=== PATIENT | male | born 1950 | race Caucasian/White ===

== ENCOUNTER → 2021-04-14 10:40 | Outpatient (CLI) | payer OTHER, SELFPAY ==
[2021-04-14 11:08] LABS: COVID19 -Nasal RAPID Negative (Negative)
== END ==
PROVIDERS: PCP Family Medicine; Visit Provider Nurse Practitioner
DX: Z20.822 Contact with and (suspected) exposure to COVID-19 (principal)
CPT/HCPCS: 87635

== ENCOUNTER 2021-04-17 06:12 | Day surgery (SDC) | payer OTHER, SELFPAY ==
[2021-03-30 09:42] VITALS: BMI 23.1
[2021-04-17] VITALS (10 sets, daily range): BP systolic 117–148; BP diastolic 64–97; PULSE 59–70; RESP 8–100; TEMP 36.1–37.4; O2SAT 12–100; BMI 23.1
--- NOTE | 2021-04-17 06:22 | DI.RAD.S_ITS ---
PROCEDURE: XR KNEE LT 1TO2V INDICATIONS: postop prosthesis placement TECHNIQUE: Two view(s) of the knee acquired. COMPARISON: [facility], CR, XR KNEE 4+ VIEWS LEFT, 01/17/2021, 14:32. FINDINGS: Bones: Patient is status post knee joint arthroplasty. Hardware components are in expected positions. Visualized bony structures are intact. Soft tissues: Overlying postoperative changes are noted including small joint effusion and intra-articular as well as soft tissue gas. Decreased density and quantity of intra-articular calcifications with mild residual posterior medial compartment calcification. IMPRESSION: 1. Post left knee arthroplasty with osseous and soft tissue changes as expected. Dictated by: Kirstin Good M.D. on 04/17/2021 at 12:33 Approved by: Kirstin Good M.D. on 04/17/2021 at 12:38
[2021-04-17] MEDS: CELECOXIB 200 MG CAPSULE PO (06:59)
[2021-04-17] MEDS: PREGABALIN 75 MG CAPSULE PO (06:59)
[2021-04-17] MEDS: ACETAMINOPHEN 325 MG TABLET 975 MG PO (07:04)
[2021-04-17] MEDS: LACTATED RINGERS 1,000 ML 42 ML IV (07:25)
--- NOTE | 2021-04-17 07:40 | PM.PREOP ---
Pre-operative Note COVID-19 COVID-19 status: Negative Result date/Date tested (Pos, Neg/Pending): 04/14/21 Interval Note History & Physical reviewed/Exam performed by Physician: Yes Changes to H&P: No
[2021-04-17] MEDS: CEFAZOLIN 1 GM VIAL 2 GM IV (08:02)
[2021-04-17] MEDS: TRANEXAMIC ACID 1,000 MG VIAL 1000 MG INJ ×2 (08:07→09:07)
--- NOTE | 2021-04-17 08:15 | SUR.OPER ---
Supine on padded OR bed. Pillow under head, arms secured on padded arm boards <90 degree abduction. Safety belt across torso. Non-operative leg secured with tape over blanket over lower leg. Operative leg secured in DeMayo positioner.
[2021-04-17] MEDS: BUPIVACAINE 0.25% (PF) VIAL 60 ML INJ (08:22)
[2021-04-17] MEDS: EPINEPHrine 1 MG/ML 0.3 MG INJ (08:23)
[2021-04-17] MEDS: BUPIVACAINE LIPOSOME 266 MG/20 ML VIAL INJ (08:24)
[2021-04-17] MEDS: MORPHINE 4 MG/ML INJ INJ (08:25)
--- NOTE | 2021-04-17 09:40 | P.OP_ITS ---
Operative Date/Time/Diagnoses Date of procedure: 04/17/21 Time of procedure: 09:40 Pre-op diagnosis: Left knee osteoarthritis Post-op diagnosis: same Procedure & Clinicians Procedure: Left total knee replacement Same procedure as scheduled: Yes Indications: The patient has had progressively worsening left knee pain with radiographic changes consistent with arthritis. Non-operative management has failed and the patient has requested total knee replacement. The risks, benefits and alternatives to surgery were discussed with the patient prior to proceeding. Risks discussed included, but were not limited to, failure to relieve pain, stiffness, infection, nerve damage, deep venous thrombosis, pulmonary embolism, stroke, coma, heart attack, permanent paralysis and , as well as the potential need for eventual revision of the prosthetic. Surgeon: Paras Sibley Head Usher: Nay Enciso Anesthesia Type: Spinal and Local Operative Notes Findings: Is severe medial and moderate patellofemoral osteoarthritis with relative preservation of the lateral compartment. Closure Type: primary Specimen(s): none sent Prosthetic devices, grafts, tissues, transplants, or devices: Implants used in this procedure were manufactured by the [employer] and [employer] and included the BCS II Journey total knee replacement with a size 8 Oxinium femoral component, a size 8 left non porous tibial base plate, a 9 mm cross-linked polyethylene tibial insert and a 41 mm oval Smiley II patella. Applied: implant(s) Estimated Blood Loss (mL): 50 Blood products transfused: none Tourniquet time (min): 55 Procedure in detail: The patient was seen in the pre-operative area, where the left knee was identified as the operative site and this was marked with my initials. The patient received pre-operative antibiotics, and was taken to the operating room and placed on the operative table in the supine position. After satisfactory anesthesia, a full stack software engineer out was performed. The left leg was encircled with a tourniquet about the proximal thigh, and the leg was prepared from the toes to the tourniquet with ChloroPrep in the usual fashion and draped through sterile drapes. The leg was elevated and exsanguinated with Eschmark bandage and the tourniquet inflated to 250 mmHg pressure. The knee was approached through an approximately 18 cm incision centered over the patella and carried into the knee through a medial parapatellar arthrotomy. The anterior osteophytes and soft tissues were removed. The rotational landmarks of Sameer's line and the transepicondylar axis were marked on the femur with electrocautery, and intramedullary guide holes for the femur and tibia were created. The distal femoral cut was made in 6 degrees of valgus using the intramedullary guide at the +2 cut setting due to a significant flexion contracture. The proximal tibial cut was then made using the intramedullary guide, taking 9 mm of bone off the less involved side. The extension gap was checked and the rotation of the femoral component confirmed with the gap balancing blocks. The anterior, posterior and chamfer cuts were then made. The posterior osteophytes and soft tissues were then removed. The posterior capsule was injected with part of a mixture of 60 ml 0.25% Marcaine mixed with 20 ml Exparel and 4 mg of morphine for post-operative pain control. The remainder of this mixture was injected into the capsule and subcutaneous tissues during cement curing. The tibia was prepared with the rotation set by an extra medullary guide. Trial tibial and femoral components were then placed and the intercondylar notch cut through the femoral trial. Range of motion was 0-145 degrees, with good stability throughout the range. The patella was then cut to accommodate the p atellar prosthetic. There was no need for a lateral release. The trials were then removed, and the femoral hole plugged with a bone plug. The bone was prepared with pulsatile lavage, and dried with a sponge. Cement was applied and the final prosthetics placed. Excess cement was removed during and after cement curing. After confirming there was no extruded cement posteriorly, the final tibial insert was placed. The knee was copiously irrigated and the tourniquet deflated. Hemostasis was obtained. The capsule was closed with interrupted # 2 polyester sutures. The subcutaneous layer was closed with 3-0 Vicryl, and the skin with a running 3-0 V-Lock suture and Dermabond. An Aquacel Ag dressing was applied and the patient was taken to recovery having tolerated the procedure well. Complications: none Post-operative Condition: stable Disposition: PACU Plan for aftercare: The patient will be maintained on a standard total knee replacement protocol with weight bearing as tolerated. The patient will receive aspirin and sequential compression devices for DVT prophylaxis. The patient will be discharged home when safe for the home environment.
--- NOTE | 2021-04-17 10:04 | SUR.PHASEI ---
received to PACU after spinal/general anesthesia. Airway patent, self maintained. Report received from MYRNA Cunningham and Dr Ramirez.
--- NOTE | 2021-04-17 10:23 | SUR.PHASEI ---
Transferred to room 213 with belonging bags x2 and backpack. Received in room by MYRNA Betancourt.
[2021-04-17] MEDS: LACTATED RINGERS 1,000 ML 100 ML IV (10:40)
--- NOTE | 2021-04-17 12:29 | PT.IIE ---
Current Diagnoses Unilateral primary osteoarthritis, left knee (04/17/21) Surgery Performed Operation Date: 04/17/21 07:45 Actual Procedures p Total Knee Arthroplasty(Left) - Paras Sibley MD Medical History (Last Updated 03/30/21 @ 10:16 by Orly Newman RN) Depression History of varicocele HLD (hyperlipidemia) Inner ear inflammation Skin cancer Tinnitus Physical Therapy Inpatient Evaluation/Re-Eval M1 PT/OT-IP Prior Functional Status Start: 04/17/21 12:19 Freq: NEEDED Status: Active Protocol: Document 04/17/21 12:05 OF (Rec: 04/17/21 12:29 OF [id number]) Medical Review Prior Functional Status Medical History Reviewed Yes Diet/Fluid Consistency Regular Prior Functional Level (Other details) Pt was I within community, works mostly from home. Enjoys hiking, walking, and water skiing Social History Household Members spouse,children Living Arrangements House Number of Floors (Floors) Two Floors Number of Stairs To Enter/Railing? 2 with rail Home Environment Standard Height Toilet,Walk in Shower,Built-In Shower Seat Home Equipment Front Wheel Walker Employment Status Plant Engineering Supervisor Employed M2 PT-IP Current Condition Start: 04/17/21 12:19 Freq: NEEDED Status: Active Protocol: Document 04/17/21 12:05 OF (Rec: 04/17/21 12:29 OF [id number]) Physical Therapy Current Condition Current Condition Evaluation Date 04/17/21 Treatment Diagnosis Difficulty walking, L TKA Weight Bearing Status Weight Bearing Status Weight Bear as Tolerated M3 PT-IP Subjective Start: 04/17/21 12:19 Freq: NEEDED Status: Active Protocol: Document 04/17/21 12:05 OF (Rec: 04/17/21 12:29 OF [id number]) Subjective Physical Therapy Visit Type Type Initial Evaluation Visit Start Time 11:30 Visit Stop Time 12:05 Total Visit Minutes 35 Number of COAT PADDER Visits 0 Physical Therapy Visit Comments Patient Comments pt and report pt was active prior to surgery. They have FWW available, outpatient therapy scheduled 04/20/21 Patient Goals get back to normal Therapy Pain Assessment Pain When Pain Assessed At Rest Pain Present Pain Present Denied Pain M4 PT-IP Mobility and Gait Start: 04/17/21 12:19 Freq: NEEDED Status: Active Protocol: Document 04/17/21 12:05 OF (Rec: 04/17/21 12:29 OF [id number]) PT-Bed Mobility Assessment Rolling Type of Rolling Roll to Right,Roll to Left Level of Assist Independent Supine to Sit Supine to Sit Independent Sit to Supine Sit to Supine Independent Scooting Scooting to Edge of Bed Independent Scooting Up and Down in Bed Independent PT-Transfer Assessment Sit to and From Stand Sit to and from Stand Minimal Assistance Equipment Transfer Assistive Device Front Wheeled Walker Transfers Transfer Destination Chair Transfer Technique Stand Step Pivot Transfer Ability Level of Assist Independent,Minimal Assistance Gait Assessment Gait Gait Assistance Required: Independent,Minimum Assistance Distance (Feet) 50 Able to Maintain Weight Bearing Status Yes During Gait Assistive Devices Assistive Device Front Wheeled Walker Gait Deviations General Gait Pattern Antalgic,Decreased Stride Length,Decreased Feet Clearance Factors Limiting Gait Function Factors Limiting Gait Function Decreased Activity Tolerance, Decreased Strength,Limited Range of Motion,Poor Balance Comments Gait Comments Stairs deferred due to limited quad control post op. PT-Balance Assessment Sitting Balance and Reactions Static Sitting Balance Ability Normal Dynamic Sitting Balance Ability Normal Standing Balance and Reactions Static Standing Balance Ability Good Dynamic Standing Balance Ability Good M5 PT-IP Objective Assessments Start: 04/17/21 12:19 Freq: NEEDED Status: Active Protocol: Document 04/17/21 12:05 OF (Rec: 04/17/21 12:29 OF [id number]) Orientation Orientation/Cognition Level of Alertness Alert Gross Range of Motion Upper Extremity ROM Assessment Within Functional Limits Lower Extremity ROM Assessment Left Impaired Impairments L LE 170-90 AROM Strength Upper Extremity Strength Assessment Within Functional Limits Lower Extremity Strength Assessment Left Impaired Hip 4/5 Knee 2+/5 Ankle 4/5 Coordination Assessment Gross Coordination Gross Coordination WNL Sensation Assessment Sensation Gross Sensation Left LE Impaired Light Touch Impaired Proprioception (Position) Intact Sensation Description Numbness,Itching Muscle Tone Muscle Tone WNL Yes M6 PT-IP Treatment Start: 04/17/21 12:19 Freq: NEEDED Status: Active Protocol: Document 04/17/21 12:05 OF (Rec: 04/17/21 12:29 OF [id number]) Physical Therapy Treatment Exercises Exercises Ankle Pumps,Gluteal Sets,Quad Sets Knee ROM Measurement 170-90 Education Education Provided Precautions,Weight Bearing Status,Post-Op Packet,Safety M7 PT-IP Assessment and Plan Start: 04/17/21 12:19 Freq: NEEDED Status: Active Protocol: Document 04/17/21 12:05 OF (Rec: 04/17/21 12:29 OF [id number]) PT Summary Assessment and Plan Potential Rehabilitation Potential Excellent Status of Condition at Evaluation Stable Summary Impairments Pain,ROM,Strength,Balance,Gait ,Activity Tolerance Progress Towards Goals Progressing Toward Goals Assessment Summary Cole is a pleasant 70 yo male s/p L TKA. He has had lumbar surgery in 2019 with resulting numbness over R plantar surface of foot. He denies other recent operations. He was I within the community, works primarily from home. He did not use a device for mobility. He has difficulty with ROM, weakness, and difficulty walking after surgery. He will require further skilled intervention for stair training to safely return home. He and issued written instructions for HEP and proper positioning while in room. Goals Bed Mobility Goal Independent Transfer Goal Independent Gait Goal Independent Gait Distance 150ft Other Goals Ascend/descend 2 steps with rail SBA to enter home with assist from . Days to Meet Goals 2 Frequency of Treatment Frequency Of Treatment Twice a Day Treatment Plan Physical Therapy Treatment Plan Bed Mobility Training,Transfer Training,Gait Training, Therapeutic Exercise,Balance Retraining,Post Op Education, Discharge Planning, Neuromuscular Re-ed Recommendations To Nursing Amount of Assist Needed 1 Person Assist Discharge Recommendations PT Discharge Recommendations Home Other Discharge Recommendations pt has outpatient therapy scheduled to start 04/20 Equipment Needed for Home Before FWW, which pt states he has Discharge Transportation Needs at Discharge Private Vehicle
[2021-04-17] MEDS: IBUPROFEN 400 MG TABLET PO ×3 (12:54→20:46)
[2021-04-17] MEDS: ACETAMINOPHEN 325 MG TABLET 650 MG PO ×2 (14:48→20:46)
--- NOTE | 2021-04-17 15:53 | PM.DS.1 ---
History of Present Illness History of Present Illness Date Patient Seen: 04/17/21 Time Patient Seen: 15:53 Chief complaint: left knee pain s/p TKA Narrative: Please see prior HPI Discharge Providers Provider Discharge Date: 04/17/21 Primary care physician: Maximiliano Galdamez Consults: 04/17/21 06:22 Consult to Anesthesiology Routine Comment: Consulting Provider: Anesthesiologist Reason for consultation: Regional block for post operative pain control 04/17/21 10:26 Consult to Discharge Planning Routine Comment: Consult to Physical Therapy Evaluate & Treat Comment: Physician Instructions: postop TKA protocol Discharge provider: Nay Enciso PA-C Summary Hospital Course Discharge Diagnosis: Left knee osteoarthritis Hospital Course: Procedure: Left total knee replacement Same procedure as scheduled: Yes Indications: The patient has had progressively worsening left knee pain with radiographic changes consistent with arthritis. Non-operative management has failed and the patient has requested total knee replacement. The risks, benefits and alternatives to surgery were discussed with the patient prior to proceeding. Risks discussed included, but were not limited to, failure to relieve pain, stiffness, infection, nerve damage, deep venous thrombosis, pulmonary embolism, stroke, coma, heart attack, permanent paralysis and , as well as the potential need for eventual revision of the prosthetic. Surgeon: Paars Sibley Video Systems Engineer: Nay Enciso Anesthesia Type: Spinal and Local Operative Notes Findings: Is severe medial and moderate patellofemoral osteoarthritis with relative preservation of the lateral compartment. Closure Type: primary Specimen(s): none sent Prosthetic devices, grafts, tissues, transplants, or devices: Implants used in this procedure were manufactured by the [employer] and included the BCS II Journey total knee replacement with a size 8 Oxinium femoral component, a size 8 left non porous tibial base plate, a 9 mm cross-linked polyethylene tibial insert and a 41 mm oval Smiley II patella. Applied: implant(s) Estimated Blood Loss (mL): 50 Blood products transfused: none Tourniquet time (min): 55 Status at Discharge Cognitive/behavioral status at discharge: oriented Functional status at discharge: uses cane/walker Overall status at discharge: patient is progressing back to baseline Exam Vital Signs (past 8 hours): - 04/17/21 09:49 04/17/21 09:54 04/17/21 09:59 Temperature 99.4 F Pulse Rate 70 70 68 Respiratory Rate 10 L 12 100 H Blood Pressure 123/73 117/68 117/71 Pulse Oximetry 100 99 12 L 04/17/21 10:04 04/17/21 10:12 04/17/21 10:26 Temperature 99.0 F 96.9 F L Pulse Rate 64 64 59 L Respiratory Rate 10 L 8 L 14 Blood Pressure 125/76 133/79 129/64 Pulse Oximetry 100 100 100 04/17/21 12:58 Temperature Pulse Rate 61 Respiratory Rate 16 Blood Pressure 119/71 Pulse Oximetry 100 Oxygen Delivery Method Room Air Oxygen Flow Rate 0 Narrative Exam Narrative: Pleasant 70-year-old male, ran resting comfortably in his chair, no acute distress. Bilateral lower extremity motor functions are intact. Bilateral lower extremities sensation is grossly intact to light touch. Bilateral calves are soft, nontender to palpation. Dressing is clean, dry, intact. [facility] Medical History Depression History of varicocele HLD (hyperlipidemia) Inner ear inflammation Skin cancer Tinnitus Surgical History History of back surgery History of colonoscopy with polypectomy History of vasectomy Hx of knee surgery Social History household members: spouse and children Smoking Status: Never smoker alcohol intake: current Discharge Assessment & Plan Assessment and Plan Assessment: Progressing as expected status post left total knee arthroplasty Plan of Treatment: -DC home today -aspirin 81 mg b.i.d. x6 weeks for DVT prophylaxis -Mobilize with PT, continue with home exercises -ibuprofen and Tylenol [id number] for pain, use oxy as needed for breakthrough pain -Follow-up with Dr. Sibley in 10-14 days for postoperative visit Discharge Plan Discharge Plan Patient Disposition: Home Discharge orders & Medications Discharge Orders: Discharge (Order); Ordered 04/17/21 Ordered By: Nay Enciso Prescriptions: New aspirin 81 mg Tablet,Delayed Release (Dr/Ec) 81 mg PO BID PRN (Reason: Prevent blood clots x6 weeks) Qty: 90 RF: 0 ibuprofen 400 mg Tablet 400 mg PO Q4HR MDD Max 2400 mg per day PRN (Reason: Pain/inflammation) Qty: 90 RF: 0 oxycodone 5 mg Tablet 5 mg PO Q3HR PRN (Reason: Pain, Moderate (4-6)) Qty: 30 RF: 0 polyethylene glycol 3350 17 gram Powder In Packet 17 g PO DAILY PRN (Reason: Constipation from the narcotic pain meds) Qty: 14 RF: 0 Continued atorvastatin 40 mg Tablet 40 mg PO DAILY RF: 0 aspirin 81 mg Tablet,Delayed Release (Dr/Ec) 81 mg PO DAILY RF: 0 paroxetine HCl 20 mg Tablet 20 mg PO DAILY RF: 0 ibuprofen [Advil] 200 mg Tablet 200 mg PO DAILY RF: 0 multivitamin Capsule 1 cap PO DAILY RF: 0 Changed acetaminophen 500 mg Capsule 500 mg PO Q4H MDD 3000mg/day PRN (Reason: pain ) Qty: 90 RF: 0 Follow up/Referrals: Maximiliano Galdamez MD [Primary Care Provider] - Paras Sibley MD [Physician] - (10-14 days for postoperative visit) Diet/Activity/Treatments Diet: Diet as Tolerated and Regular Activity: -weightbearing as tolerated with front wheel walker -continue with home exercises as demonstrated by Physical therapy Cold/Heat Therapy: -use ice as needed for pain Other treatments: -aspirin 81 mg twice daily x6 weeks to prevent blood clots -Tylenol 500 mg every 4 hours for pain + ibuprofen 400 mg every 4 hours for pain -Use Oxy 5 mg 1/2 to 1 tab every 4 hours as needed for moderate to severe breakthrough pain Skin/Wound/Dressing Care Report to your healthcare provider any signs of infection, such as:: chills, fever, night sweats, unusual drainage and unusual redness Dressing: -remove Jurgen wrap after 48 hours. Okay to shower with waterproof dressing in place. Please call the office if water proof dressing becomes wet, or soiled, saturated. Visit Report/Discharge Packet Instructions: DI for Knee Replacement Stand Alone Forms: Surgery Discharge Discharge Data Primary Care Provider: Maximiliano Galdamez Attending Provider: Paras Sibley
--- NOTE | 2021-04-17 16:36 | PC.NURSE ---
Addendum entered by Ellie Goldberg R.N. 04/17/21 21:02: patient urinated approx 600cc over the last few hours, reported he sometimes had trouble beginning urine stream at home, and they were both concerned about the catheter causing swelling in urethra and possibly impeding urine flow. by time of d/c at 2100 he was comfortable, accepted HS meds, paperwork signed after review. left floor via w/c and assisted by [facility]. took patient home in their private car. Addendum entered by Ellie Goldberg R.N. 04/17/21 16:46: patient unable to urinate. assisted back to chair in room, large cups of water offered, accepted. awaiting 1st void. Original Note: d/c orders received. assessment completed, patient is doing very well w/ getting around. using FWW w/ steady gait. + CSM checks. aquacel and Jurgen wrap to L knee. ice pack. patient is attempting to urinate after surgery and prior to leaving hospital. warm water offered while he is on the toilet, to pour onto his lower abdomen/bladder to assist w/ urination. awaiting arrival or urine. rosy is in the room.
[2021-04-17] MEDS: ASPIRIN EC 81 MG TABLET PO (20:46)
[2021-04-17] MEDS: DOCUSATE 100 MG CAPSULE PO (20:46)
== END 2021-04-17 21:08 | disposition home or self-care (01) ==
LOC: OR 06:18 → AC 06:18
PROVIDERS: PCP Family Medicine; Referring Provider Family Medicine; Visit Provider Orthopaedic Surgery
PROC: 0SRD0JZ Replacement of Left Knee Joint with Synthetic Substitute, Open Approach (ICD-10-PCS; CPT 27447; principal; 2021-04-17 07:45)
DX: M17.12 Unilateral primary osteoarthritis, left knee (principal); E78.5 Hyperlipidemia, unspecified; F32.9 Major depressive disorder, single episode, unspecified; Z85.828 Personal history of other malignant neoplasm of skin
CPT/HCPCS: 27447; 73560; 97161; C1776; C9290; J0171; J0690; J2270; J2274; J2704